=== PATIENT | male | born 1945 | race Hispanic/Latino ===

== ENCOUNTER 2016-10-12 17:55 | Emergency (ER) | payer MEDICARE ==
[2016-10-12] MEDS ORDERED: Aspirin 325 MG TAB ONE (18:07)
[2016-10-12] MEDS ORDERED: Nitroglycerin 0.4 MG TAB 1 EACH ONE (18:07)
[2016-10-12 18:15] LABS: #Basophils 0.2 thou/uL (0.0-0.2); #Eosinphils 0.4 thou/uL (0.0-0.7); #Lymphocytes 3.6 thou/uL (1.20-3.40); #Monocytes 1.2 thou/uL (0.11-0.59); #Neutrophils 6.3 thou/uL (1.40-6.50); %Basophils 1.6 % (0.0-1.0); %Eosinophils 3.3 % (0.0-10.0); %Lymphocytes 31.1 % (21.0-51.0); %Neutrophils 54.1 % (42.0-75.0); Hemoglobin 18.2 g/dL (14.0-18.0); Mean Corpuscular HGB CONC 33.3 g/dL (32.0-36.0); Mean Corpuscular Hemoglobin 29.6 pg (27.0-31.0); Mean Platelet Volume 7.5 fL (7.4-10.4); Platelet Count 306 thou/uL (130-400); RBC Distribution Width 11.6 % (11.5-14.5); Red Blood Cell (RBC) Count 6.13 mill/uL (4.70-6.10); White Blood Cell (WBC) Count 11.6 thou/uL (4.8-10.8)
[2016-10-12 18:26] LABS: PTT 29.7 SEC (22.9-36.1)
[2016-10-12 18:27] LABS: ALT (SGPT) 47 U/L (0-55); AST (SGOT) 29 U/L (5-34); Albumin 4.2 g/dL (3.4-4.8); Alkaline Phosphatase 89 U/L (40-150); Anion Gap 18 mmol/L (10-20); BUN (Urea Nitrogen) 13 mg/dL (8.4-25.7); Bilirubin, Total 0.6 mg/dL (0.2-1.2); CK (CPK) 162 U/L (30-200); Calc. Creatinine Clearance 0 mL/min (70-130); Calcium 9.6 mg/dL (7.8-10.44); Carbon Dioxide 22 mmol/L (23-31); Chloride 104 mmol/L (98-107); Estimated GFR-MDRD 84; Globulin 3.4 g/dL (2.4-3.5); Glucose 100 mg/dL (80-115); Potassium 3.5 mmol/L (3.5-5.1); Protein, Total 7.6 g/dL (5.8-8.1); Sodium 140 mmol/L (136-145)
[2016-10-12 18:29] LABS: Prothrombin Time 13.8 SEC (12.0-14.7)
--- NOTE | 2016-10-12 18:33 | RAD ---
PORTABLE AP CHEST X-RAY 10/12/16 HISTORY: Chest pain. COMPARISON: 12/10/02. 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 The cardiac silhouette is magnified by proje ction. Pulmonary vasculature is within normal limits. The lungs are clear. No other interval change. IMPRESSION: No acute cardiopulmonary process. POS: [facility]
[2016-10-12 18:36] LABS: CKMB 2.4 ng/mL (0-6.6); Troponin I 0.011 ng/mL (< 0.028)
== END 2016-10-12 21:25 | disposition short-term general hospital (02) ==
LOC: MADERS 17:55
DX: I20.0 Unstable angina (principal); I25.2 Old myocardial infarction; Z79.82 Long term (current) use of aspirin; Z79.899 Other long term (current) drug therapy
CPT/HCPCS: 36415; 71010; 80053; 82550; 82553; 83880; 84484; 85025; 85610; 85730; 93005; 94760

== ENCOUNTER 2019-02-01 05:10 | Emergency (ER) | payer MEDICARE ==
[2019-02-01] MEDS ORDERED: Oxymetazoline HCl 0.05% ( 15 ML ) ONE (05:27)
== END 2019-02-01 06:50 | disposition home or self-care (01) ==
LOC: MADERS 05:10
DX: R04.0 Epistaxis (principal); I10 Essential (primary) hypertension; E78.2 Mixed hyperlipidemia; I25.2 Old myocardial infarction; Z79.82 Long term (current) use of aspirin; Z79.899 Other long term (current) drug therapy
CPT/HCPCS: 30903